=== PATIENT | female | born 1995 | race Caucasian/White ===

== ENCOUNTER → 2022-01-21 | Outpatient (CLI) | payer OTHER ==
[2022-01-21 13:20] LABS: HEMATOCRIT 31.8 % (36.0-47.0); HEMOGLOBIN 10.3 g/dl (12.0-15.5); MEAN CORPUSCULAR HEMOGLOBIN 29.8 pg (27.0-33.0); MEAN CORPUSCULAR HGB CONC 32.4 g/dl (32.0-36.5); MEAN CORPUSCULAR VOLUME 91.9 fl (80.0-96.0); PLATELET COUNT, AUTOMATED 277 10^3/uL (150-450); RED BLOOD COUNT 3.46 10^6/uL (4.00-5.40); WHITE BLOOD COUNT 9.8 10^3/uL (4.0-10.0)
[2022-01-21 13:41] LABS: GLUCOSE CHALLENGE TEST 1 HOUR 142 MG/DL (LESS THAN 140)
[2022-01-21 16:43] LABS: GC DNA AMPLIFICATION NEGATIVE (NEGATIVE)
== END ==
LOC: M PLALAB 08:23
PROVIDERS: ATTEND Advanced Practice Midwife
DX: Z34.93 Encounter for supervision of normal pregnancy, unspecified, third trimester (principal); Z3A.28 28 weeks gestation of pregnancy

== ENCOUNTER → 2022-01-28 | Outpatient (CLI) | payer OTHER ==
[~2022-01-28] MED LIST: PRENTAB9 PO
== END ==
LOC: M WHC 08:21 → EDUNIT# 09:00
PROVIDERS: ATTEND Advanced Practice Midwife
DX: Z36.2 Encounter for other antenatal screening follow-up (principal); Z3A.29 29 weeks gestation of pregnancy

== ENCOUNTER 2022-02-01 09:52 | Outpatient (CLI) | payer OTHER ==
[~2022-02-01] VITALS: Ht 175.3 cm; Wt 90.2 kg
[2022-02-01] MEDS ORDERED: PRENTAB9 PO (14:49)
[2022-02-01] MEDS ORDERED: HOME MED LIST COMPLETE! XX SCH (14:55)
== END 2022-02-01 14:24 | disposition home or self-care (01) ==
LOC: M LDO 09:52
PROVIDERS: ATTEND Obstetrics & Gynecology
DX: O26.893 Other specified pregnancy related conditions, third trimester (principal); N89.8 Other specified noninflammatory disorders of vagina; O30.043 Twin pregnancy, dichorionic/diamniotic, third trimester; Z3A.30 30 weeks gestation of pregnancy
CPT/HCPCS: 59025; 76815; 76819; 76820; G0378; G0463

== ENCOUNTER → 2022-02-21 | Outpatient (CLI) | payer OTHER | LOC: M WHC 12:50 | PROVIDERS: ATTEND Obstetrics & Gynecology | DX: Z36.89 Encounter for other specified antenatal screening (principal); Z3A.31 31 weeks gestation of pregnancy ==

== ENCOUNTER → 2022-02-23 | Outpatient (CLI) | payer OTHER | LOC: M LAB 07:01 | PROVIDERS: ATTEND Obstetrics & Gynecology | DX: R73.09 Other abnormal glucose (principal) ==

== ENCOUNTER → 2022-03-08 | Outpatient (CLI) | payer OTHER | LOC: M WHC 12:56 | PROVIDERS: ATTEND Obstetrics & Gynecology | DX: O30.043 Twin pregnancy, dichorionic/diamniotic, third trimester (principal) ==

== ENCOUNTER → 2022-03-08 | Outpatient (REF) | payer OTHER | LOC: M PLALAB 10:11 | PROVIDERS: ATTEND Specialist | DX: O30.043 Twin pregnancy, dichorionic/diamniotic, third trimester (principal) ==

== ENCOUNTER 2022-03-14 09:05 | Inpatient (IN) | payer OTHER ==
[2022-03-14] VITALS (29 sets, daily range): BP systolic 134–197; BP diastolic 62–95
[~2022-03-14] VITALS: Ht 175.3 cm; Wt 96.8 kg
[2022-03-14] MEDS ORDERED: LACTATED RINGER'S 1000 ML IV ONE (09:35)
[2022-03-14] MEDS: BETAMETHASONE SOLUSPAN 6MG/ML 5ML VIAL (J0702 PER 3MG) IM SCH ×2 (10:17→22:01)
[2022-03-14] MEDS: LR 1,000 ML IV SCH ×2 (10:46→19:31)
[2022-03-14] MEDS ORDERED: OXYTOCIN DRIP 30 UNITS in IV 1 EA IV PRN (12:50)
[2022-03-14] MEDS ORDERED: LIDOCAINE 1% MDV 20ML VIAL INFIL PRN (12:50)
[2022-03-14] MEDS ORDERED: TRANEXAMIC ACID INJection 1,000 MG in NS 100 ML IV PRN (12:50)
[2022-03-14] MEDS ORDERED: CARBOPROST TROMETHAMINE 250 MCG/ML AMP IM PRN (12:50)
[2022-03-14] MEDS ORDERED: METHYLERGONOVINE MALEATE 0.2 MG/ML VIAL (J2210) IM PRN (12:50)
[2022-03-14 13:22] LABS: HEMATOCRIT 30.8 % (36.0-47.0); HEMOGLOBIN 9.6 g/dl (12.0-15.5); MEAN CORPUSCULAR HEMOGLOBIN 25.7 pg (27.0-33.0); MEAN CORPUSCULAR HGB CONC 31.2 g/dl (32.0-36.5); MEAN CORPUSCULAR VOLUME 82.6 fl (80.0-96.0); PLATELET COUNT, AUTOMATED 194 10^3/uL (150-450); RED BLOOD COUNT 3.73 10^6/uL (4.00-5.40); WHITE BLOOD COUNT 8.1 10^3/uL (4.0-10.0)
[2022-03-14] MEDS ORDERED: ceFAZolin SOD 2 GM in IV 1 EA IV STA (14:02)
[2022-03-14 14:42] LABS: TOTAL PROTEIN,RANDOM URINE 72.1 MG/DL (0.0-12.0)
[2022-03-14 15:29] LABS: ALT/SGPT 14 U/L (12-78); BILIRUBIN,TOTAL 0.2 MG/DL (0.2-1.0); GLOMERULAR FILTRATION RATE > 60.0 (>60); LDH LACTATE DEHYDROGENASE 327 U/L (84-246); URIC ACID 6.9 MG/DL (2.6-6.0)
[2022-03-14] MEDS ORDERED: LABETALOL 100MG/20ML VIAL As Ordered ONE ×2 (15:35→15:36)
[2022-03-14] MEDS ORDERED: LABETALOL 100MG/20ML VIAL IV STA (15:35)
[2022-03-14] MEDS ORDERED: OXYTOCIN 30 UNITS IN 0.9% NaCl 500ML IV BAG (J2590) As Ordered ONE (15:36)
[2022-03-14] MEDS ORDERED: OXYTOCIN DRIP 30 UNITS in IV 1 EA IV SCH (15:40)
[2022-03-14] MEDS ORDERED: ceFAZolin SOD 1 GM in D5W MINI-BAG PLUS 50 ML IV SCH (22:00)
[2022-03-15] VITALS (36 sets, daily range): BP systolic 126–190; BP diastolic 63–97
[2022-03-15] MEDS ORDERED: FENTANYL 2MCG/ML ROPIVACAINE 0.2% IN 0.9% NACL 100ML IVBAG As Ordered ONE (00:42)
[2022-03-15] MEDS ORDERED: NALOXONE INJ 0.4MG/1ML VIAL (J2310 PER 1MG) IV PRN (00:45)
[2022-03-15] MEDS ORDERED: ePHEDrine SULFATE 25 MG/5 ML(5MG/ML) SYRINGE IVP PRN (00:45)
[2022-03-15] MEDS ORDERED: diphenhydrAMINE 50MG/ML VIAL (J1200) IV PRN (00:45)
[2022-03-15] MEDS ORDERED: ONDANSETRON 4MG 2ML VIAL IV PRN ×2 (00:45→05:55)
[2022-03-15] MEDS ORDERED: LR 500 ML IV PRN (00:45)
[2022-03-15] MEDS ORDERED: FENTANYL/ROPIVACAINE/NACL BAG 100 ML EPIDURAL SCH (00:45)
[2022-03-15] MEDS ORDERED: EPIDURAL/PCA KEYS XX PRN (00:45)
[2022-03-15] MEDS: LR 1,000 ML IV SCH (01:35)
[2022-03-15] MEDS ORDERED: DIBUCAINE 1% OINTMENT 30GM TOP PRN (05:55)
[2022-03-15] MEDS ORDERED: ACETAMINOPHEN 500 MG TAB PO PRN (05:55)
[2022-03-15] MEDS ORDERED: IBUPROFEN 600MG TAB PO PRN (05:55)
[2022-03-15] MEDS ORDERED: ANUSOL HC CREAM 30GM TOP PRN (05:55)
[2022-03-15] MEDS ORDERED: ACETAMINOPHEN TAB 650MG DOSE (2X325MG) PO PRN (05:55)
[2022-03-15] MEDS ORDERED: DOCUSATE SODIUM 100MG CAPSULE PO PRN (05:55)
[2022-03-15] MEDS ORDERED: MOM 30ML SUSPENSION UDC PO PRN (05:55)
[2022-03-15] MEDS ORDERED: RHOGAM 300 MCG (1500 IU) INJ (J2790) IM SCH (05:55)
[2022-03-15] MEDS ORDERED: LABETALOL 100MG/20ML VIAL IV STA (06:00)
[2022-03-15] MEDS: PRENATAL VITAMINS CHEWABLE TABLET PO SCH (09:00)
[2022-03-15] MEDS: IBUPROFEN 800 MG TAB PO PRN (18:09)
[2022-03-16 06:00] VITALS: BP 136/69
[2022-03-16 06:42] LABS: HEMATOCRIT 21.6 % (36.0-47.0); MEAN CORPUSCULAR HEMOGLOBIN 26.3 pg (27.0-33.0); MEAN CORPUSCULAR HGB CONC 31.9 g/dl (32.0-36.5); MEAN CORPUSCULAR VOLUME 82.4 fl (80.0-96.0); PLATELET COUNT, AUTOMATED 156 10^3/uL (150-450); RED BLOOD COUNT 2.62 10^6/uL (4.00-5.40); WHITE BLOOD COUNT 16.1 10^3/uL (4.0-10.0)
[2022-03-16 06:45] LABS: HEMOGLOBIN 6.9 g/dl (12.0-15.5)
[2022-03-16 07:06] LABS: ALT/SGPT 18 U/L (12-78); BILIRUBIN,TOTAL 0.2 MG/DL (0.2-1.0); CREATININE FOR GFR 0.84 MG/DL (0.55-1.30); GLOMERULAR FILTRATION RATE > 60.0 (>60); LDH LACTATE DEHYDROGENASE 297 U/L (84-246); URIC ACID 7.2 MG/DL (2.6-6.0)
[2022-03-16] MEDS: PRENATAL VITAMINS CHEWABLE TABLET PO SCH (09:51)
[2022-03-16 10:00] VITALS: BP 126/69
[2022-03-16 14:00] VITALS: BP 142/83
[2022-03-16 18:00] VITALS: BP 150/84
[2022-03-16] MEDS: IBUPROFEN 800 MG TAB PO PRN (18:27)
[2022-03-16 22:00] VITALS: BP 136/76
[2022-03-17] VITALS (14 sets, daily range): BP systolic 136–177; BP diastolic 70–90
[2022-03-17] MEDS ORDERED: diphenhydrAMINE 50MG/ML VIAL (J1200) IV ONE (05:00)
[2022-03-17] MEDS ORDERED: ACETAMINOPHEN 500 MG TAB PO ONE (05:00)
[2022-03-17] MEDS ORDERED: MEASLES,MUMPS,RUBELLA VACCINE INJ (MMR-II) (90707) SC.IMMUN ONE (09:00)
[2022-03-17] MEDS: PRENATAL VITAMINS CHEWABLE TABLET PO SCH (09:19)
[2022-03-17] MEDS: IBUPROFEN 800 MG TAB PO PRN (12:20)
[2022-03-17 20:04] LABS: HEMATOCRIT 26.8 % (36.0-47.0); MEAN CORPUSCULAR HEMOGLOBIN 27.6 pg (27.0-33.0); MEAN CORPUSCULAR HGB CONC 33.2 g/dl (32.0-36.5); MEAN CORPUSCULAR VOLUME 83.2 fl (80.0-96.0); PLATELET COUNT, AUTOMATED 194 10^3/uL (150-450); RED BLOOD COUNT 3.22 10^6/uL (4.00-5.40); WHITE BLOOD COUNT 13.5 10^3/uL (4.0-10.0)
[2022-03-17 20:08] LABS: HEMOGLOBIN 8.9 g/dl (12.0-15.5)
[2022-03-18 03:33] VITALS: BP 150/86
[2022-03-18 06:30] VITALS: BP 156/80
[2022-03-18] MEDS: PRENATAL VITAMINS CHEWABLE TABLET PO SCH (08:17)
[2022-03-18 10:00] VITALS: BP 155/82
== END 2022-03-18 15:15 | disposition home or self-care (01) | DRG 807 ==
LOC: M LDO 09:05 → M LDI 12:45 → M OBS 03-15 08:15
PROVIDERS: ADMIT Advanced Practice Midwife; ATTEND Advanced Practice Midwife
PROC: 10E0XZZ Delivery of Products of Conception, External Approach (ICD-10-PCS; principal; 2022-03-15)
PROC: 0HQ9XZZ Repair Perineum Skin, External Approach (ICD-10-PCS; 2022-03-15)
PROC: 10907ZC Drainage of Amniotic Fluid, Therapeutic from Products of Conception, Via Natural or Artificial Opening (ICD-10-PCS; 2022-03-15)
DX: O14.94 Unspecified pre-eclampsia, complicating childbirth (principal); Z37.2 Twins, both liveborn; O30.043 Twin pregnancy, dichorionic/diamniotic, third trimester; Z3A.36 36 weeks gestation of pregnancy; O32.6XX1 Maternal care for compound presentation, fetus 1; O32.8XX2 Maternal care for other malpresentation of fetus, fetus 2; O70.0 First degree perineal laceration during delivery

== ENCOUNTER → 2023-06-19 | Outpatient (CLI) | payer OTHER | LOC: M PLALAB 10:22 | PROVIDERS: ATTEND Obstetrics & Gynecology | DX: O09.299 Supervision of pregnancy with other poor reproductive or obstetric history, unspecified trimester (principal); Z53.9 Procedure and treatment not carried out, unspecified reason ==

== ENCOUNTER → 2023-07-24 | Outpatient (CLI) | payer OTHER | LOC: M WHC 08:37 | PROVIDERS: ATTEND Obstetrics & Gynecology | DX: Z34.92 Encounter for supervision of normal pregnancy, unspecified, second trimester (principal) ==

== ENCOUNTER → 2023-09-15 | Outpatient (CLI) | payer OTHER ==
[2023-09-15 10:48] LABS: HEMATOCRIT 35.9 % (36.0-47.0); HEMOGLOBIN 11.7 g/dl (12.0-15.5); MEAN CORPUSCULAR HEMOGLOBIN 31.7 pg (27.0-33.0); MEAN CORPUSCULAR HGB CONC 32.6 g/dl (32.0-36.5); MEAN CORPUSCULAR VOLUME 97.3 fl (80.0-96.0); PLATELET COUNT, AUTOMATED 220 10^3/uL (150-450); RED BLOOD COUNT 3.69 10^6/uL (4.00-5.40); WHITE BLOOD COUNT 9.1 10^3/uL (4.0-10.0)
== END ==
LOC: M PLALAB 07:17
PROVIDERS: ATTEND Advanced Practice Midwife
DX: Z34.82 Encounter for supervision of other normal pregnancy, second trimester (principal)